=== PATIENT | female | born 1950 | race Asian ===

== ENCOUNTER 2016-08-04 17:00 | Inpatient (IN) | payer OTHER, SELFPAY ==
[~2016-08-04] VITALS: Ht 147.3 cm; Wt 58.7 kg
[~2016-08-04 17:00] MED LIST: CARVEDILOL; CLON0.1T PO
[2016-08-04] MEDS ORDERED: METO-323 PO (17:09)
[2016-08-04] MEDS ORDERED: IOVERSOL 350 MG/ML 100 ML VIAL ONE (17:22)
[2016-08-04] MEDS ORDERED: SODIUM CHLORIDE 0.9% 100 ML ONE (17:22)
[2016-08-04 17:37] LABS: BASOPHILS % (AUTO) 0.1 % (0.0-2.0); EOSINOPHILS % (AUTO) 0 % (1.0-6.0); HEMATOCRIT 37.1 % (36-46); HEMOGLOBIN 12.1 g/dL (12.0-16.0); LYMPHOCYTES # (AUTO) 1.5 K/uL (1.0-4.8); MEAN CORPUSCULAR HEMOGLOBIN 31.2 pg (26.0-34.0); MEAN CORPUSCULAR HGB CONC 32.5 G/dL (31.0-37.0); MEAN CORPUSCULAR VOLUME 96 fL (80-100); MONOCYTES # (AUTO) 0.6 K/uL (0.1-1.0); MONOCYTES % (AUTO) 3.6 % (2.0-9.0); NEUTROPHILS # (AUTO) 13.3 K/uL (1.8-7.7); PLATELET COUNT (AUTO) 206 K/uL (150-450); RED BLOOD CELL COUNT(AUTO) 3.86 MIL/uL (4.00-5.20); RED CELL DISTRIBUTION WIDTH 12.2 % (11.5-14.5); WHITE BLOOD COUNT (AUTO) 15.4 K/uL (4.5-11.0)
[2016-08-04 17:40] LABS: NEUTROPHILS % (AUTO) 86.3 % (40.0-70.0)
[2016-08-04] MEDS ORDERED: ALTEPLASE 54.5 MG in WATER FOR INJECTION,STERILE 54.5 ML IV ONE (17:45)
[2016-08-04] MEDS ORDERED: ALTEPLASE PER STROKE PROTOCOL CLINICAL ONE ×4 (17:45→23:30)
[2016-08-04] MEDS ORDERED: ALTEPLASE 6.1 MG in WATER FOR INJECTION,STERILE 6.1 ML IV ONE (17:45)
[2016-08-04] MEDS ORDERED: HydrALAZINE HCL 20 MG/ML VIAL IVP ONE (17:45)
[2016-08-04 17:50] LABS: PROTHROMBIN TIME 10.1 SEC (9.4-11.6)
[2016-08-04] MEDS ORDERED: ONDANSETRON HCL 4 MG/2 ML VIAL IVP PRN ×2 (18:00→23:30)
[2016-08-04 18:02] LABS: ANION GAP 16 mmol/L (8-16); CALCIUM, TOTAL 9.1 mg/dL (8.8-10.5); CARBON DIOXIDE 22 mmol/L (22-29); CHLORIDE 99 mmol/L (98-107); CREATININE 1.24 mg/dL (0.60-1.30); GLOMERULAR FILTR. RATE CALC 44 mL/min (>60); POTASSIUM 3.7 mmol/L (3.5-5.1); SODIUM SERUM 137 mmol/L (136-145); UREA NITROGEN, BLOOD 28 mg/dL (7-18)
[2016-08-04 18:27] LABS: ALANINE AMINOTRANSFERASE 26 U/L (12-78); ALBUMIN 3.4 g/dL (3.4-5.0); ASPARTATE AMINOTRANSFERASE 13 U/L (15-37); BILIRUBIN,TOTAL 0.2 mg/dL (0.1-1.0); CREATINE KINASE MB 1.6 ng/mL (0-5); CREATINE KINASE, TOTAL 103 U/L (26-192); RBC MORPHOLOGY COMMENT NORMAL RBC MORPH
[2016-08-04 20:00] VITALS: BP 160/75
[2016-08-04] MEDS ORDERED: IPRATROPIUM BROMIDE 0.5 MG/2.5 ML NEB SOLUTION NEB PRN (23:30)
[2016-08-04] MEDS ORDERED: ALBUTEROL SULFATE 2.5 MG/0.5 ML NEB SOLUTION NEB PRN (23:30)
[2016-08-04] MEDS ORDERED: BISACODYL 10 MG RECTAL RECTAL SUPPOSITORY PR PRN (23:30)
[2016-08-04] MEDS ORDERED: MORPHINE SULFATE 2 MG/ML SYRINGE IVP PRN (23:30)
[2016-08-04] MEDS ORDERED: NITROPRUSSIDE SODIUM 50 MG in DEXTROSE 5%-WATER 248 ML IV PRN ×4 (23:42)
[2016-08-04] MEDS ORDERED: DEXTROSE 5%-0.45% SODIUM CHL 1,000 ML IV SCH (23:45)
[2016-08-04] MEDS ORDERED: LABETALOL HCL 5 MG/ML 20 ML VIAL IVP PRN ×2 (23:45)
[2016-08-05] VITALS: BP 128/91
[2016-08-05] MEDS ORDERED: SODIUM CHLORIDE 0.9% 250 ML IV ONE (01:03)
[2016-08-05 04:00] VITALS: BP 110/66
[2016-08-05 05:42] LABS: BASOPHILS # (AUTO) 0.03 K/uL (0.00-0.20); BASOPHILS % (AUTO) 0.2 % (0.0-2.0); EOSINOPHILS % (AUTO) 0 % (1.0-6.0); HEMATOCRIT 31.8 % (36-46); HEMOGLOBIN 10.6 g/dL (12.0-16.0); LYMPHOCYTES # (AUTO) 1.8 K/uL (1.0-4.8); LYMPHOCYTES % (AUTO) 13.4 % (22.0-44.0); MEAN CORPUSCULAR HEMOGLOBIN 31.6 pg (26.0-34.0); MEAN CORPUSCULAR HGB CONC 33.2 G/dL (31.0-37.0); MEAN CORPUSCULAR VOLUME 95 fL (80-100); MONOCYTES # (AUTO) 0.6 K/uL (0.1-1.0); MONOCYTES % (AUTO) 4.3 % (2.0-9.0); NEUTROPHILS # (AUTO) 11.1 K/uL (1.8-7.7); NEUTROPHILS % (AUTO) 82.1 % (40.0-70.0); PLATELET COUNT (AUTO) 196 K/uL (150-450); RED BLOOD CELL COUNT(AUTO) 3.34 MIL/uL (4.00-5.20); RED CELL DISTRIBUTION WIDTH 12.9 % (11.5-14.5); WHITE BLOOD COUNT (AUTO) 13.6 K/uL (4.5-11.0)
[2016-08-05 06:01] LABS: BILIRUBIN,TOTAL 0.3 mg/dL (0.1-1.0); CALCIUM, TOTAL 8.4 mg/dL (8.8-10.5); CREATININE 1.22 mg/dL (0.60-1.30); POTASSIUM 4.2 mmol/L (3.5-5.1); TOTAL PROTEIN, SERUM 6.9 g/dL (6.4-8.2)
[2016-08-05 07:36] LABS: GLUCOSE, URINE (UA) NEGATIVE (NEGATIVE); KETONES,URINE NEGATIVE (NEGATIVE); LEUKOCYTE ESTERASE ,URINE NEGATIVE (NEGATIVE); OCCULT BLOOD,URINE LARGE (NEGATIVE); PROTEIN,URINE TRACE (NEGATIVE)
[2016-08-05 07:38] LABS: ADD UA MICROSCOPIC YES; APPEARANCE,URINE HAZY (CLEAR)
[2016-08-05 07:51] LABS: SQUAMOUS EPITHELIAL CELL,UR Few /LPF (None Seen)
[2016-08-05 08:00] VITALS: BP 89/61
[2016-08-05] MEDS ORDERED: PANTOPRAZOLE SODIUM 40 MG/VIAL IVP SCH ×2 (09:00)
[2016-08-05] MEDS ORDERED: DEXTROSE 5%-0.45% SODIUM CHL 1,000 ML IV SCH (10:00)
[2016-08-05 10:36] LABS: HEMOGLOBIN A1C 6.7 % (4.5-6.2)
[2016-08-05 10:37] LABS: CHOL/HDL RATIO 3.9 (3.9-5.7); THYROID STIMULATING HORMONE 0.99 uIU/mL (0.36-3.74)
[2016-08-05] MEDS: PANTOPRAZOLE SODIUM 80 MG in SODIUM CHLORIDE 0.9% 500 ML IV SCH ×2 (11:58→21:48)
[2016-08-05 12:00] VITALS: BP 11/55
[2016-08-05] MEDS ORDERED: LIDOCAINE HCL/PF 2% 5 ML VIAL INJ ONE (12:00)
[2016-08-05] MEDS ORDERED: PROPOFOL 1% 20 ML VIAL IVP ONE (12:00)
[2016-08-05 15:45] LABS: HEMATOCRIT 28.3 % (36-46)
[2016-08-05 16:00] VITALS: BP 122/68
[2016-08-05] MEDS: DEXTROSE 5%-0.45% SODIUM CHL 1,000 ML IV SCH ×2 (16:45→21:49)
[2016-08-05 20:00] VITALS: BP 121/76
[2016-08-06] VITALS: BP 110/66
[2016-08-06 00:06] LABS: HEMATOCRIT 25.6 % (36-46); HEMOGLOBIN 8.4 g/dL (12.0-16.0)
[2016-08-06 04:00] VITALS: BP 121/58
[2016-08-06] MEDS: DEXTROSE 5%-0.45% SODIUM CHL 1,000 ML IV SCH ×3 (04:11→17:05)
[2016-08-06 06:06] LABS: BASOPHILS # (AUTO) 0.03 K/uL (0.00-0.20); BASOPHILS % (AUTO) 0.3 % (0.0-2.0); EOSINOPHILS % (AUTO) 0.03 % (1.0-6.0); HEMATOCRIT 24.1 % (36-46); HEMOGLOBIN 7.9 g/dL (12.0-16.0); LYMPHOCYTES # (AUTO) 1.8 K/uL (1.0-4.8); LYMPHOCYTES % (AUTO) 18.1 % (22.0-44.0); MEAN CORPUSCULAR HEMOGLOBIN 31.8 pg (26.0-34.0); MEAN CORPUSCULAR HGB CONC 32.7 G/dL (31.0-37.0); MEAN CORPUSCULAR VOLUME 97 fL (80-100); MONOCYTES # (AUTO) 0.7 K/uL (0.1-1.0); MONOCYTES % (AUTO) 6.5 % (2.0-9.0); NEUTROPHILS # (AUTO) 7.6 K/uL (1.8-7.7); NEUTROPHILS % (AUTO) 75.1 % (40.0-70.0); PLATELET COUNT (AUTO) 162 K/uL (150-450); RED BLOOD CELL COUNT(AUTO) 2.48 MIL/uL (4.00-5.20); RED CELL DISTRIBUTION WIDTH 13.2 % (11.5-14.5); WHITE BLOOD COUNT (AUTO) 10.1 K/uL (4.5-11.0)
[2016-08-06] MEDS: PANTOPRAZOLE SODIUM 80 MG in SODIUM CHLORIDE 0.9% 500 ML IV SCH ×2 (07:37→17:05)
[2016-08-06 08:00] VITALS: BP 126/82
[2016-08-06] MEDS ORDERED: ASPIRIN 81 MG EC TABLET PO SCH (09:00)
[2016-08-06] MEDS ORDERED: FentaNYL CITRATE-PF 100 MCG/2 ML VIAL ONE (10:16)
[2016-08-06] MEDS ORDERED: MIDAZOLAM HCL 5 MG/ML VIAL ONE (10:17)
[2016-08-06 12:00] VITALS: BP 140/62
[2016-08-06 15:01] LABS: HEMATOCRIT 26.1 % (36-46); HEMOGLOBIN 8.4 g/dL (12.0-16.0)
[2016-08-06 16:09] VITALS: BP 135/74
[2016-08-06 19:51] VITALS: BP 136/63
[2016-08-06] MEDS: CloNIDine HCL 0.1 MG TABLET PO SCH (22:07)
[2016-08-06 22:19] LABS: HEMATOCRIT 24.3 % (36-46); HEMOGLOBIN 7.8 g/dL (12.0-16.0)
[2016-08-07] VITALS (22 sets, daily range): BP systolic 100–151; BP diastolic 38–83
[2016-08-07] MEDS: PANTOPRAZOLE SODIUM 80 MG in SODIUM CHLORIDE 0.9% 500 ML IV SCH ×2 (03:33→12:56)
[2016-08-07] MEDS: DEXTROSE 5%-0.45% SODIUM CHL 1,000 ML IV SCH (04:52)
[2016-08-07 05:20] LABS: BASOPHILS % (AUTO) 0.3 % (0.0-2.0); EOSINOPHILS % (AUTO) 0.9 % (1.0-6.0); HEMATOCRIT 21.4 % (36-46); LYMPHOCYTES # (AUTO) 2.1 K/uL (1.0-4.8); LYMPHOCYTES % (AUTO) 19.8 % (22.0-44.0); MEAN CORPUSCULAR HEMOGLOBIN 31.4 pg (26.0-34.0); MEAN CORPUSCULAR HGB CONC 32.5 G/dL (31.0-37.0); MEAN CORPUSCULAR VOLUME 97 fL (80-100); MONOCYTES # (AUTO) 0.8 K/uL (0.1-1.0); MONOCYTES % (AUTO) 7.8 % (2.0-9.0); NEUTROPHILS # (AUTO) 7.4 K/uL (1.8-7.7); NEUTROPHILS % (AUTO) 71.2 % (40.0-70.0); PLATELET COUNT (AUTO) 146 K/uL (150-450); RED BLOOD CELL COUNT(AUTO) 2.22 MIL/uL (4.00-5.20); RED CELL DISTRIBUTION WIDTH 12.5 % (11.5-14.5); WHITE BLOOD COUNT (AUTO) 10.4 K/uL (4.5-11.0)
[2016-08-07 08:10] LABS: HEMOGLOBIN 7.1 g/dL (12.0-16.0)
[2016-08-07] MEDS: METOPROLOL SUCCINATE 25 MG ER TABLET PO SCH (09:00)
[2016-08-07] MEDS: CloNIDine HCL 0.1 MG TABLET PO SCH ×2 (09:00→20:53)
[2016-08-08 00:20] VITALS: BP 128/80
[2016-08-08] MEDS: PANTOPRAZOLE SODIUM 80 MG in SODIUM CHLORIDE 0.9% 500 ML IV SCH ×2 (00:42→09:15)
[2016-08-08 04:14] VITALS: BP 131/66
[2016-08-08 06:47] LABS: BASOPHILS % (AUTO) 0.3 % (0.0-2.0); EOSINOPHILS % (AUTO) 2.4 % (1.0-6.0); HEMATOCRIT 30.6 % (36-46); LYMPHOCYTES # (AUTO) 2.7 K/uL (1.0-4.8); LYMPHOCYTES % (AUTO) 23.5 % (22.0-44.0); MEAN CORPUSCULAR HEMOGLOBIN 30.7 pg (26.0-34.0); MEAN CORPUSCULAR HGB CONC 32.6 G/dL (31.0-37.0); MEAN CORPUSCULAR VOLUME 94 fL (80-100); MONOCYTES # (AUTO) 1.1 K/uL (0.1-1.0); MONOCYTES % (AUTO) 9.2 % (2.0-9.0); NEUTROPHILS # (AUTO) 7.5 K/uL (1.8-7.7); NEUTROPHILS % (AUTO) 64.6 % (40.0-70.0); PLATELET COUNT (AUTO) 146 K/uL (150-450); RED BLOOD CELL COUNT(AUTO) 3.24 MIL/uL (4.00-5.20); RED CELL DISTRIBUTION WIDTH 13.8 % (11.5-14.5); WHITE BLOOD COUNT (AUTO) 11.6 K/uL (4.5-11.0)
[2016-08-08 07:42] VITALS: BP 128/60
[2016-08-08] MEDS: CloNIDine HCL 0.1 MG TABLET PO SCH ×2 (09:00→21:09)
[2016-08-08] MEDS: METOPROLOL SUCCINATE 25 MG ER TABLET PO SCH (09:15)
[2016-08-08] MEDS: ASPIRIN 81 MG CHEWABLE TABLET PO SCH (09:16)
[2016-08-08 11:24] VITALS: BP 117/60
[2016-08-08 16:05] VITALS: BP 159/74
[2016-08-08 20:39] VITALS: BP 138/69
[2016-08-08] MEDS: SIMVASTATIN 10 MG TABLET PO SCH (21:09)
[2016-08-08] MEDS: PANTOPRAZOLE SODIUM 40 MG DR TABLET PO SCH (21:09)
[2016-08-09 00:38] VITALS: BP 136/72
[2016-08-09 04:46] VITALS: BP 131/70
[2016-08-09 07:40] VITALS: BP 109/49
[2016-08-09] MEDS: CloNIDine HCL 0.1 MG TABLET PO SCH ×2 (08:28→20:58)
[2016-08-09] MEDS: METOPROLOL SUCCINATE 25 MG ER TABLET PO SCH (08:30)
[2016-08-09] MEDS: ASPIRIN 81 MG CHEWABLE TABLET PO SCH (08:31)
[2016-08-09] MEDS: PANTOPRAZOLE SODIUM 40 MG DR TABLET PO SCH ×2 (08:31→20:58)
[2016-08-09] MEDS: MetFORMIN HCL 500 MG TABLET PO SCH (08:34)
[2016-08-09 10:50] VITALS: BP 112/63
[2016-08-09 16:08] VITALS: BP 124/75
[2016-08-09 20:42] VITALS: BP 140/75
[2016-08-09] MEDS: SIMVASTATIN 10 MG TABLET PO SCH (20:58)
[2016-08-10] VITALS (12 sets, daily range): BP systolic 79–124; BP diastolic 38–69
[2016-08-10] MEDS: ASPIRIN 81 MG CHEWABLE TABLET PO SCH (09:39)
[2016-08-10] MEDS: PANTOPRAZOLE SODIUM 40 MG DR TABLET PO SCH ×2 (09:40→20:53)
[2016-08-10] MEDS: AmLODIPine BESYLATE 5 MG TABLET PO SCH (09:40)
[2016-08-10] MEDS: CloNIDine HCL 0.1 MG TABLET PO SCH ×2 (09:40→20:52)
[2016-08-10] MEDS: MetFORMIN HCL 500 MG TABLET PO SCH (09:40)
[2016-08-10] MEDS ORDERED: SODIUM CHLORIDE 0.9% 500 ML IV ONE (12:30)
[2016-08-10] MEDS ORDERED: SODIUM CHLORIDE 0.9% 1,000 ML IV ONE (15:45)
[2016-08-10] MEDS ORDERED: PHENYLEPHRINE 200 MG/D5%-WATER 250 ML IV PRN (17:39)
[2016-08-10 18:01] LABS: BASOPHILS % (AUTO) 0.3 % (0.0-2.0); EOSINOPHILS % (AUTO) 3.1 % (1.0-6.0); HEMATOCRIT 35.5 % (36-46); HEMOGLOBIN 11.6 g/dL (12.0-16.0); LYMPHOCYTES # (AUTO) 2.4 K/uL (1.0-4.8); LYMPHOCYTES % (AUTO) 17.1 % (22.0-44.0); MEAN CORPUSCULAR HEMOGLOBIN 30.5 pg (26.0-34.0); MEAN CORPUSCULAR HGB CONC 32.5 G/dL (31.0-37.0); MEAN CORPUSCULAR VOLUME 94 fL (80-100); MONOCYTES # (AUTO) 1.2 K/uL (0.1-1.0); MONOCYTES % (AUTO) 8.7 % (2.0-9.0); NEUTROPHILS # (AUTO) 9.9 K/uL (1.8-7.7); NEUTROPHILS % (AUTO) 70.8 % (40.0-70.0); PLATELET COUNT (AUTO) 202 K/uL (150-450); RED BLOOD CELL COUNT(AUTO) 3.79 MIL/uL (4.00-5.20); RED CELL DISTRIBUTION WIDTH 13.8 % (11.5-14.5)
[2016-08-10 18:11] LABS: CALCIUM, TOTAL 8.6 mg/dL (8.8-10.5); CREATININE 1.04 mg/dL (0.60-1.30); POTASSIUM 4.3 mmol/L (3.5-5.1)
[2016-08-10] MEDS: SIMVASTATIN 10 MG TABLET PO SCH (20:53)
[2016-08-11] VITALS: BP 110/54
[2016-08-11 04:00] VITALS: BP 109/46
[2016-08-11 08:00] VITALS: BP 134/67
[2016-08-11] MEDS: PANTOPRAZOLE SODIUM 40 MG DR TABLET PO SCH (08:36)
[2016-08-11] MEDS: MetFORMIN HCL 500 MG TABLET PO SCH (08:36)
[2016-08-11] MEDS: ASPIRIN 81 MG CHEWABLE TABLET PO SCH (08:37)
[2016-08-11] MEDS: CloNIDine HCL 0.1 MG TABLET PO SCH (08:37)
[2016-08-11] MEDS: AmLODIPine BESYLATE 5 MG TABLET PO SCH (08:37)
[2016-08-11 12:00] VITALS: BP 125/61
[2016-08-12 12:03] LABS: GLUCOSE,POINT OF CARE 113 MG/DL (70-110)
== END 2016-08-11 14:10 | disposition home or self-care (01) | DRG 45 ==
LOC: EMS 17:01 → ICU 18:01 → 5S 08-06 15:30 → ICU 08-10 17:00
PROVIDERS: ADMIT Hospitalist; ATTEND Hospitalist
PROC: 3E03317 Introduction of Other Thrombolytic into Peripheral Vein, Percutaneous Approach (ICD-10-PCS; principal; 2016-08-04)
PROC: 0DJ08ZZ Inspection of Upper Intestinal Tract, Via Natural or Artificial Opening Endoscopic (ICD-10-PCS; 2016-08-05)
PROC: 30233N1 Transfusion of Nonautologous Red Blood Cells into Peripheral Vein, Percutaneous Approach (ICD-10-PCS; 2016-08-07)
DX: I63.9 Cerebral infarction, unspecified (principal); D68.32 Hemorrhagic disorder due to extrinsic circulating anticoagulants; I95.9 Hypotension, unspecified; K29.01 Acute gastritis with bleeding; G81.91 Hemiplegia, unspecified affecting right dominant side; R71.0 Precipitous drop in hematocrit; R47.01 Aphasia; T45.615A Adverse effect of thrombolytic drugs, initial encounter; I10 Essential (primary) hypertension; D72.829 Elevated white blood cell count, unspecified; R29.714 NIHSS score 14; J11.1 Influenza due to unidentified influenza virus with other respiratory manifestations; R58 Hemorrhage, not elsewhere classified; R60.9 Edema, unspecified; K29.80 Duodenitis without bleeding; R29.810 Facial weakness; E78.00 Pure hypercholesterolemia, unspecified; K29.60 Other gastritis without bleeding; X58.XXXA Exposure to other specified factors, initial encounter; Y93.89 Activity, other specified; Y92.89 Other specified places as the place of occurrence of the external cause; Y99.8 Other external cause status; Z79.82 Long term (current) use of aspirin; Z79.899 Other long term (current) drug therapy
CPT/HCPCS: 70496; 70551; 82607; 82746; 82962; 83036; 84443; 85014; 85018; 86850; 86900; 86901; 86920; 87081; 92507; 92523; 93005; 93306; 93880; 96365; 96375; 97110; 97112; 97163; 97166; 97530; 97535; 99291; C9113; J0360; J2250; J2704; J2997; J3010; J3490; J7040; J7050; J7060; P9016

== ENCOUNTER 2019-01-27 04:06 | Emergency (ER) | payer MEDICARE, OTHER ==
[~2019-01-27] VITALS: Ht 149.9 cm; Wt 59.1 kg
[~2019-01-27 04:06] MED LIST changes: -CARVEDILOL; +METO25XL PO
[2019-01-27] MEDS ORDERED: ACETAMINOPHEN 500 MG TABLET PO ONE (04:15)
[2019-01-27] MEDS ORDERED: LIDOCAINE 5% TRANSDERMAL PATCH TD ONE (04:15)
[2019-01-27] MEDS ORDERED: AMLO10TA7 PO (04:27)
[2019-01-27] MEDS ORDERED: ASPI-1182 PO (04:27)
[2019-01-27] MEDS ORDERED: BACL10TA PO (04:27)
[2019-01-27] MEDS ORDERED: LOSA25TA41 PO (04:27)
[2019-01-27 05:25] VITALS: BP 123/74
== END 2019-01-27 06:00 | disposition home or self-care (01) ==
LOC: EMS 04:09
DX: M25.512 Pain in left shoulder (principal); I10 Essential (primary) hypertension; Z79.899 Other long term (current) drug therapy; Z86.73 Personal history of transient ischemic attack (TIA), and cerebral infarction without residual deficits